=== PATIENT | female | born 1955 | race Caucasian/White ===

== ENCOUNTER 2020-10-06 09:43 | Outpatient (REF) | payer BC, SELFPAY | END 2020-10-06 09:44 | disposition home or self-care (01) | LOC: HO.LAB 09:43 | PROVIDERS: PCP Pediatrics; Visit Provider Internal Medicine | DX: Z20.828 Contact with and (suspected) exposure to other viral communicable diseases (principal) | CPT/HCPCS: C9803; U0003 ==

== ENCOUNTER 2020-11-24 09:21 | Outpatient (REF) | payer BC, SELFPAY | END 2020-11-24 09:22 | disposition home or self-care (01) | LOC: HO.LAB 09:21 | PROVIDERS: Visit Provider Internal Medicine | DX: Z20.822 Contact with and (suspected) exposure to COVID-19 (principal) | CPT/HCPCS: 36415; C9803; U0003 ==

== ENCOUNTER 2021-01-16 09:21 | Outpatient (REF) | payer BC, SELFPAY | END 2021-01-16 09:22 | disposition home or self-care (01) | LOC: HO.LAB 09:21 | PROVIDERS: Visit Provider Internal Medicine | DX: Z20.822 Contact with and (suspected) exposure to COVID-19 (principal) | CPT/HCPCS: 36415; C9803; U0003; U0005 ==

== ENCOUNTER 2023-07-11 10:20 | Day surgery (SDC) | payer BC, SELFPAY ==
[2023-07-06 12:10] VITALS: BMI 34.9
--- NOTE | 2023-07-08 08:32 | MHC.SHP ---
Pre-Procedural Eval Section A Date of Service: 07/08/23 The patient is an INPATIENT: No Changes since office visit: No Cold of Flu in the past 2 weeks, No New Medical Problems, No Changes in Medication and No Patient answered all questions The History & Physical has been completed within 30 days and I have reviewed it.: Yes Section B Chief Complaint: Dermatochalasis of right+Left upper eyelid Allergies: Allergies Allergy/AdvReac Type Severity Reaction Status Date / Time ampicillin [AMPICILLIN] Allergy Mild RASH Unverified 07/31/20 19:49 Plan Diagnosis/Plan: Unchanged I have reviewed the history and physical and performed a pertinent physical examination on my patient. No changes have occurred unless specified. Time Spent With Patient Time: Total time managing care of this patient today ____ minutes.
--- NOTE | 2023-07-08 12:04 | HO.ANESPROP2 ---
Documented by User: Loretta Marie NP 07/08/23 12:05 HPI - Anesthesia Eval Consult details Narrative: 68yo F for Bilateral Blepharoplasty Medically optimized PMFSH Past Medical History Medical History (Updated 07/08/23 @ 11:26 by Rosaline Gao RN) Abnormal EKG Asthma Basal cell carcinoma (BCC) Elevated cholesterol HTN (hypertension) Lacunar infarction Midline cystocele Obesity (BMI 30-39.9) Surgical History Surgical History (Updated 07/08/23 @ 11:26 by Rosaline Gao RN) H/O colonoscopy Hx of total hysterectomy Hx of tubal ligation Social History Social History Are you a primary senior care manager to a significant other at home: No Do you presently have visiting nurse or other home services: No Patient Tobacco Use Status: Never used Tobacco Use of substances other than those prescribed or required for medical reasons: No Have you been hit, kicked, punched, or otherwise hurt by someone within the past year? If so, by whom?: No Advance Directives: No Advance Directives Information Provided: Yes Advance Directives on File: No Recently lost weight without trying: No Eating poorly because of decreased appetite: No Nutrition Risks: No Nutritional Risk Patient : No : No Poor oral hygiene: No Meds Allergies Allergy/AdvReac Type Severity Reaction Status Date / Time ampicillin [AMPICILLIN] Allergy Mild RASH Verified 07/11/23 10:45 Home Medications Medication Instructions Recorded Confirmed Last Taken Type albuterol sulfate 90 mcg/actuation 2 inh inhalation Q4-6H PRN Allergy 07/06/23 07/08/23 Unknown History breath activated powder inhaler Symptoms aspirin 81 mg tablet,delayed 81 mg PO DAILY 07/06/23 07/06/23 07/06/23 History release atorvastatin 10 mg tablet 10 mg PO DAILY 07/06/23 07/06/23 Unknown History calcium carbonate 600 mg-vitamin 1 tab PO 2XW 07/06/23 07/06/23 Unknown History D3 5 mcg (200 unit) tablet cyanocobalamin (vitamin B-12) 50 50 mcg PO DAILY 07/06/23 07/06/23 Unknown History mcg tablet (Vitamin B-12) lisinopril 30 mg tablet 30 mg PO DAILY 07/06/23 07/06/23 Unknown History multivitamin 1 tab PO DAILY 07/06/23 07/06/23 Unknown History tumeric 100 mg-joseph 150 mg-olive 1 cap PO DAILY 07/06/23 07/06/23 Unknown History 50 mg-oreg 150 mg-caprylate capsule cranberry 400 mg capsule 400 mg PO DAILY 07/08/23 07/08/23 Unknown History diclofenac sodium 1 % topical gel 2 g topical QID 07/08/23 07/08/23 Unknown History mirabegron 25 mg tablet,extended 25 mg PO DAILY 07/08/23 07/08/23 Unknown History release 24 hr Exam Exam Date and Time: July 08, 2023 1204 Height,Weight and Vital Signs: Height 5 ft 5 in Weight 95.254 kg Assessment and Plan Assessment Anesthesia Assessment: Chart Reviewed Documented by User: Kris Ivey MD 07/11/23 15:45 PMFSH Past Medical History Medical History (Updated 07/08/23 @ 11:26 by Rosaline Gao RN) Abnormal EKG Asthma Basal cell carcinoma (BCC) Elevated cholesterol HTN (hypertension) Lacunar infarction Midline cystocele Obesity (BMI 30-39.9) Functional capacity: independent ambulation Family History Family history of problems with anesthesia: No Surgical History Surgical History (Updated 07/08/23 @ 11:26 by Rosaline Gao RN) H/O colonoscopy Hx of total hysterectomy Hx of tubal ligation History of Problems with Anesthesia: No Social History Social History Are you a primary senior care manager to a significant other at home: No Do you presently have visiting nurse or other home services: No Patient Tobacco Use Status: Never used Tobacco Use of substances other than those prescribed or required for medical reasons: No Have you been hit, kicked, punched, or otherwise hurt by someone within the past year? If so, by whom?: No Advance Directives: No Advance Directives Information Provided: Yes Advance Directives on File: No Recently lost weight without trying: No Eating poorly because of decreased appetite: No Nutrition Risks: No Nutritional Risk Patient : No : No Poor oral hygiene: No Meds Allergies Allergy/AdvReac Type Severity Reaction Status Date / Time ampicillin [AMPICILLIN] Allergy Mild RASH Verified 07/11/23 10:45 Home Medications Medication Instructions Recorded Confirmed Last Taken Type albuterol sulfate 90 mcg/actuation 2 inh inhalation Q4-6H PRN Allergy 07/06/23 07/08/23 Unknown History breath activated powder inhaler Symptoms aspirin 81 mg tablet,delayed 81 mg PO DAILY 07/06/23 07/06/23 07/06/23 History release atorvastatin 10 mg tablet 10 mg PO DAILY 07/06/23 07/06/23 Unknown History calcium carbonate 600 mg-vitamin 1 tab PO 2XW 07/06/23 07/06/23 Unknown History D3 5 mcg (200 unit) tablet cyanocobalamin (vitamin B-12) 50 50 mcg PO DAILY 07/06/23 07/06/23 Unknown History mcg tablet (Vitamin B-12) lisinopril 30 mg tablet 30 mg PO DAILY 07/06/23 07/06/23 Unknown History multivitamin 1 tab PO DAILY 07/06/23 07/06/23 Unknown History tumeric 100 mg-joseph 150 mg-olive 1 cap PO DAILY 07/06/23 07/06/23 Unknown History 50 mg-oreg 150 mg-caprylate capsule cranberry 400 mg capsule 400 mg PO DAILY 07/08/23 07/08/23 Unknown History diclofenac sodium 1 % topical gel 2 g topical QID 07/08/23 07/08/23 Unknown History mirabegron 25 mg tablet,extended 25 mg PO DAILY 07/08/23 07/08/23 Unknown History release 24 hr Exam Airway Mallampati Class: IV Loose/Missing/Broken Teeth: Yes Assessment and Plan Assessment Anesthesia Assessment: Anesthesia Plan Discussed Final Anesthetic Review Family History of Problems with Anesthesia: No History of Problems with Anesthesia: No NPO: Yes ASA Class: II Final Preanesthetic Review: Meds/Allgs Chart Reviewed, Consent Obtained/Reviewed and Anes Risks/Benef Reviewed Patient Risk: Intermediate Procedure Risk: Intermediate Anesthetic Plan Anesthetic Plan: MAC: and Agree w/ Assess. and Plan Disposition: Standard PACU
[2023-07-11 10:43] VITALS: BP 153/63; PULSE 83; RESP 20; TEMP 36.6; O2SAT 98
[2023-07-11] MEDS: Lactated Ringers 500 ML 50 ML IV (10:56)
--- NOTE | 2023-07-11 12:52 | HO.PNOPHT ---
Ophthalmology Procedure Procedure Date of Service: 07/11/23 Ophthalmology Viscoelastic: Not Applicable Ophthalmology Lenses: Not Applicable Procedure Notes: PREOPERATIVE DIAGNOSIS: Decreased visual field secondary to dermatochalasia POSTOPERATIVE DIAGNOSIS: Same PROCEDURE: Bilateral Blepharoplasty, upper eyelids SURGEON: Fercho Klein M.D. ANESTHESIA: Local with sedation ESTIMATED BLOOD LOSS: None COMPLICATIONS: None After obtaining informed consent, the patient was brought to the operating room and placed in supine position. After adequate sedation per Anesthesia, the eyes were prepped and draped in the usual sterile fashion. Attention was directed to the right eye where a double pinch test was completed to assure excess tissue was not removed from the upper lid. The margin was marked at the proposed incision sites. The left eye was done in a similar fashion. 2% Lidocaine with epinephrine was then instilled subcutaneously along the margin of the pre-marked skin incisions. #15 scalpel blade was then utilized to create the incisions. Using a combination of sharp and blunt dissection with Zion scissors, the epidermis was removed. Hemostasis was achieved with cautery. 6-0 plain suture was then utilized to close the incision site. Attention was directed to the left upper lid where subcutaneous 2% with Epinephrine Lidocaine was instilled along the pre-marked areas. A #15 scalpel blade was then utilized to create the incisions followed by sharp and blunt dissection with Zion scissors to remove the overlying epidermis. Hemostasis was achieved with cautery, followed by closure with 6-0 plain suture. The patient tolerated the procedure well. The patient will be followed up in the a.m. Topical antibiotic ointment was instilled over the incision sites and ice as tolerated for 48 hours.
[2023-07-11 14:03] VITALS: BP 147/81; PULSE 88; RESP 16; TEMP 37.1; O2SAT 99
[2023-07-11 14:18] VITALS: BP 160/83; PULSE 83; RESP 16; O2SAT 96
[2023-07-11 14:33] VITALS: BP 149/72; PULSE 84; RESP 18; TEMP 36.9; O2SAT 97
== END 2023-07-11 14:58 | disposition home or self-care (01) ==
PROVIDERS: PCP Physician Assistant Medical; Visit Provider Ophthalmology
PROC: (CPT 15823; principal; 2023-07-11 13:10)
DX: H02.834 Dermatochalasis of left upper eyelid (principal); H02.831 Dermatochalasis of right upper eyelid; H18.413 Arcus senilis, bilateral; H11.153 Pinguecula, bilateral; H52.4 Presbyopia; I10 Essential (primary) hypertension; E78.00 Pure hypercholesterolemia, unspecified; J45.909 Unspecified asthma, uncomplicated; Z79.82 Long term (current) use of aspirin; Z79.899 Other long term (current) drug therapy; Z88.1 Allergy status to other antibiotic agents
CPT/HCPCS: 15823; J2250; J3010

== ENCOUNTER 2023-11-22 10:00 | Outpatient (RCR) | payer BC, SELFPAY | END 2024-01-16 10:54 | disposition home or self-care (01) | LOC: HO.PT 10:00 | PROVIDERS: PCP Physician Assistant Medical; Visit Provider Physician Assistant | DX: M75.31 Calcific tendinitis of right shoulder (principal) | CPT/HCPCS: 97110; 97140; 97161 ==